=== PATIENT | male | born 1970 | race Caucasian/White ===

== ENCOUNTER 2017-09-20 09:40 | Emergency (ER) | payer MEDICARE ==
[~2017-09-20] VITALS: Ht 182.9 cm; Wt 109.1 kg
[2017-09-20] MEDS ORDERED: IBUP-2070 PO (09:56)
[2017-09-20 10:06] VITALS: BP 153/105
[2017-09-20] MEDS: VANCOMYCIN HCL 1 GM/D5% WATER 200 ML IV ONE ×2 (10:53→11:00)
[2017-09-20 10:59] LABS: ANION GAP 5 mmol/L (8-16); CALCIUM, TOTAL 8.8 mg/dL (8.8-10.5); CARBON DIOXIDE 31 mmol/L (22-29); CHLORIDE 96 mmol/L (98-107); CREATININE 1.22 mg/dL (0.60-1.30); GLOMERULAR FILTR. RATE CALC > 60 mL/min (>60); GLUCOSE,RANDOM 270 mg/dL (70-110); POTASSIUM 3.6 mmol/L (3.5-5.1); SODIUM SERUM 132 mmol/L (136-145); UREA NITROGEN, BLOOD 14 mg/dL (7-18)
[2017-09-20] MEDS ORDERED: PIPERACILLIN/TAZO 3.375 GM/D5W 50 ML IV ONE (11:00)
[2017-09-20 11:02] LABS: BASOPHILS % (AUTO) 0.5 % (0.0-2.0); EOSINOPHILS % (AUTO) 0.4 % (1.0-6.0); HEMATOCRIT 45.8 % (41-53); HEMOGLOBIN 15.9 g/dL (13.5-17.5); LYMPHOCYTES # (AUTO) 2.2 K/uL (1.0-4.8); LYMPHOCYTES % (AUTO) 14.4 % (22.0-44.0); MEAN CORPUSCULAR HEMOGLOBIN 32.2 pg (26.0-34.0); MEAN CORPUSCULAR HGB CONC 34.8 G/dL (31.0-37.0); MEAN CORPUSCULAR VOLUME 93 fL (80-100); NEUTROPHILS # (AUTO) 10.9 K/uL (1.8-7.7); NEUTROPHILS % (AUTO) 71.7 % (40.0-70.0); PLATELET COUNT (AUTO) 212 K/uL (150-450); RED BLOOD CELL COUNT(AUTO) 4.95 MIL/uL (4.50-5.90)
[2017-09-20] MEDS ORDERED: GADOBUTROL 1 MMOL/ML 10 ML VIAL IVP ONE (11:11)
[2017-09-20 12:24] LABS: ERYTHROCYTE SEDIMENTATION RATE 38 MM/HR (0-15)
[2017-09-20 18:38] LABS: GLUCOSE,POINT OF CARE 219 MG/DL (70-110)
== END 2017-09-20 13:42 | disposition left against medical advice (07) ==
LOC: EMS 09:42
DX: L03.116 Cellulitis of left lower limb (principal); F12.10 Cannabis abuse, uncomplicated; F17.210 Nicotine dependence, cigarettes, uncomplicated; F31.9 Bipolar disorder, unspecified; E11.40 Type 2 diabetes mellitus with diabetic neuropathy, unspecified; Z79.899 Other long term (current) drug therapy
CPT/HCPCS: 36415; 73720; 80048; 82962; 85025; 85651; 96365; 96372; 99285; J2543; J3230; J3370; A9585